=== PATIENT | female | born 1995 | race Caucasian/White ===

== ENCOUNTER 2020-10-13 04:09 | Emergency (ER) | payer OTHER ==
[~2020-10-13] VITALS: Ht 167.6 cm; Wt 86.2 kg
[2020-10-13] MEDS ORDERED: LEVO-T75 MCG PO (04:18)
[2020-10-13] MEDS ORDERED: LYRICA25 MG PO (04:19)
[2020-10-13] MEDS ORDERED: BUSPIRONE HCL10 MG PO (04:19)
[2020-10-13] MEDS ORDERED: AMITRIPTYLINE H50 M2 PO (04:20)
[2020-10-13 04:51] LABS: URINE BILIRUBIN NEGATIVE (Negative); URINE BLOOD NEGATIVE (Negative); URINE CLARITY CLEAR; URINE COLOR YELLOW; URINE GLUCOSE-RANDOM* NEGATIVE (Negative); URINE KETONES TRACE (Negative); URINE LEUKOCYTES-REFLEX NEGATIVE (Negative); URINE NITRITE-REFLEX NEGATIVE (Negative); URINE PROTEIN (DIPSTICK) TRACE (Negative); URINE SPECIFIC GRAVITY >= 1.030 (1.005-1.035); URINE UROBILINOGEN 0.2 E.U./dl (0.2-1.0)
[2020-10-13 05:22] LABS: ABSOLUTE NEUTROPHILS 3.2 thou/uL (1.4-8.2); BASOPHILS 0.7 % (0.0-2.0); EOSINOPHILS 1.9 % (0.0-3.0); HEMATOCRIT 37.5 % (37.0-47.0); HEMOGLOBIN 12.7 gm/dL (12.0-15.0); LYMPHOCYTES 39.2 % (24.0-44.0); MCH 31.7 pg (26.0-34.0); MCHC 33.8 g/dL (28.0-37.0); MCV 93.8 fL (80.0-100.0); MONOCYTES 9.8 % (1.0-8.0); PLATELET COUNT 316 thou/uL (150-400); POLYS 48.4 % (36.0-66.0); RDW 13.3 % (10.5-14.5); WBC 6.6 thou/uL (4.0-11.0)
[2020-10-13 05:56] LABS: CALCIUM 8.6 mg/dL (8.5-10.1); CREATININE 0.7 mg/dL (0.6-1.0); POTASSIUM 5.8 mmol/L (3.5-5.1)
[2020-10-13] MEDS ORDERED: XANAX 0.25 MG0.25 MG PO (06:03)
[2020-10-13 06:08] LABS: ALBUMIN 3.7 g/dL (3.4-5.0); TOTAL BILIRUBIN 0.6 mg/dL (0.2-1.0); TOTAL PROTEIN 7.6 g/dL (6.4-8.2)
--- NOTE | 2020-10-13 07:07 | EKG ---
[address] [address] ELECTROCARDIOGRAM REPORT Name: DELFINO PA Room #: [facility]#: [id number] Admission: 10/13/20 Attend Phys: Discharge: Date of : [birth year] Report #: [id number] [facility] ED Test Date: 2020-10-13 Test Time: 04:50:40 Pat Name: DELFINO PA Department: Room: Gender: F [employer]: albert : 1995 Requested By: Kel Mansfield Order Number: [id number] MD: Jl Acevedo Measurements Intervals [place] Rate: 116 P: 55 RI: 129 QRS: 79 QRSD: 97 T: 6 QT: 331 QTc: 460 Interpretive Statements Sinus tachycardia Baseline wander in lead(s) V1,V2 No previous ECG available for comparison Electronically Signed On 10-13-2020 7:07:21 CDT by Jl Acevedo [email or web address] <ELECTRONICALLY SIGNED> By: Jl Acevedo MD, [facility] 10/13/20 [id number] [id number] Jl Acevedo MD, FACC /EPI
[2020-10-13 08:20] VITALS: BP 114/78
== END 2020-10-13 08:25 | disposition home or self-care (01) ==
LOC: ER 04:09
PROVIDERS: Emergency Medicine
DX: F41.9 Anxiety disorder, unspecified (principal); F12.90 Cannabis use, unspecified, uncomplicated; E03.9 Hypothyroidism, unspecified; Z79.899 Other long term (current) drug therapy